=== PATIENT | male | born 1970 | race African-American/Black ===

== ENCOUNTER 2016-12-01 05:36 | Day surgery (SDC) | payer BC ==
[~2016-12-01] VITALS: Ht 177.8 cm; Wt 116.1 kg
--- NOTE | ~2016-12-01 | S ---
[facility] [place] [address] SURGICAL PATH RPT PROCEDURE Name: FREDDIE HA Room #: DEP [facility]..#: [id number] Admission: 12/01/16 Date of : 74 Discharge: 12/01/16 Report #: [id number] Path Case #: [id number] PATHOLOGY REPORT COLLECTION DATE: 12/01/2016 RECEIVED DATE: 12/01/2016 SUBMITTING PHYS: Dr. Karson Barron OTHER PHYS: Dr. Bjorn Ferguson SPECIMEN(S) RECEIVED: A.Ventral hernia sac * * * * * * * * * * * * FINAL DIAGNOSIS: Ventral hernia sac, repair: - Fibrovascular connective tissue with marked congestion and chronic inflammation, compatible with a hernia sac. (IUV:csd; d/t: 12/02/2016) PATHOLOGIST: Masha Addison M.D. REPORT ELECTRONICALLY SIGNED BY: Masha Addison M.D. DATE/TIME: 12/02/2016 16:51 * * * * * * * * * * * * GROSS PATHOLOGY: Received in formalin labeled "Freddie Ha ventral hernia sac," is a segment of red-mandujano to dark-brown membranous tissue with a moderate amount of attached fibroadipose tissue measuring 9.9 x 6.8 x 3.1 cm. No nodules or lesions are identified. Grief Counselor tissue is submitted in cassette A1. (KAH; 12/01/2016) CLINICAL HISTORY: Ventral incisional hernia INITIAL CPT CODE(S): A; 48986 Professional services performed by [facility] at [facility] [address] [place] [address] Technical services performed by [facility] at [address] [place] [id number]. [facility] [address] [place] [address] SURGICAL PATH RPT PROCEDURE Name: FREDDIE HA Room #: DEP [facility] Neri#: [id number] Admission: 12/01/16 Date of : 74 Discharge: 12/01/16 Report #: [id number] Path Case #: [id number] [address] PHONE: [phone] DIRECTOR: Michael Menchaca M.D. * * * END OF REPORT * * *
--- NOTE | ~2016-12-01 | O ---
[facility] [place] [address] OPERATIVE REPORT Name: ANAHI STEPHENS Room #: DEP [facility].#: [id number] Admission: 12/01/16 Attend Phys: Karson Barron MD Discharge: 12/01/16 Date of : 74 Report #: [id number] THIS REPORT FOR: //name// CC: Bjorn Barron DATE OF SERVICE: 12/01/2016 PATIENT OF: Dr. Karson Barron and Dr. Bjorn Ferguson. PREOPERATIVE DIAGNOSIS: Incarcerated ventral incisional hernia. POSTOPERATIVE DIAGNOSIS: Incarcerated ventral incisional hernia. PROCEDURE: Repair of a large incarcerated ventral incisional hernia with Ventralex mesh. SURGEON: Karson Barron MD ANESTHESIA: General. DESCRIPTION OF PROCEDURE: The patient was brought to the operating room and placed on the operative table in the supine position. Sequential compression devices were in place for DVT prophylaxis. There was no indication for preoperative antibiotics. The patient underwent a general endotracheal anesthesia and the abdomen was then prepped and draped in a sterile fashion. Skin and subcutaneous tissue overlying the previous incision scar was infiltrated with 0.5% Marcaine. Skin incision was then performed using #15 scalpel blade. Hemostasis obtained using electrocautery. Dissection was carried down through the subcutaneous tissue to the hernia sac, which was identified and dissected free down to the fascia. The hernia sac was opened and the incarcerated contents were reduced back into the abdomen. The hernia sac was then completely excised using electrocautery as well as clamps and 2-0 chromic ties. This left an approximately 5 cm x 4 cm defect in the fascia. A large Ventralex hernia patch was then placed intraabdominally and then secured circumferentially around the edges of the fascia well away from the edge using interrupted transfascial 0 Prolene sutures through the circumferentially around the mesh. The fascia was then closed over the mesh using interrupted [id number] #1 Prolene sutures. The tails on the strap were secured superiorly and inferiorly with simple interrupted 2-0 Vicryl suture. Deep and superficial subcutaneous tissue was then reapproximated using simple interrupted 2-0 chromic sutures and the skin then closed with a running 4-0 subcuticular Vicryl stitch. Wound was then dressed with Dermabond, Telfa, 4 x 4 gauze, sponge and tape. The patient was then awakened from the general endotracheal anesthesia, extubated, and taken to recovery room in good condition. [address] [address] OPERATIVE REPORT Name: ANAHI STEPHENS Room #: DEP [facility]#: [id number] Admission: 12/01/16 Attend Phys: Karson Barron MD Discharge: 12/01/16 Date of : 74 Report #: [id number] blood loss was approximately 20 mL. The patient tolerated the procedure well. All sponge, lap and instrument counts were correct times 2. <ELECTRONICALLY SIGNED> By: Karson Barron MD 12/02/16 1341 1307 1323 Karson Barron MD /nt
[~2016-12-01 05:36] MED LIST: INDAPAMIDE2.5 MG PO; MULTIVITAMINS1 EAC7 PO; NORVASC 5 MG TAB5 MG PO; NORVASC10 MG PO; VITAMIN D1000 UNI1 PO; ZYRTEC10 M5 PO
[2016-12-01 09:00] VITALS: BP 126/85
[2016-12-01 09:08] LABS: CALCIUM 9.3 mg/dL (8.5-10.1); CREATININE 0.9 mg/dL (0.7-1.3)
[2016-12-01 09:13] LABS: POTASSIUM 3.4 mmol/L (3.5-5.1)
[2016-12-01] MEDS ORDERED: NORCO 5-325 TA1 EACH PO (13:12)
[2016-12-01 13:26] VITALS: BP 126/85
== END 2016-12-01 14:40 | disposition home or self-care (01) ==
LOC: TBA 05:36 → OR 05:36
PROVIDERS: Surgery
DX: K43.6 Other and unspecified ventral hernia with obstruction, without gangrene (principal); I10 Essential (primary) hypertension; Z98.890 Other specified postprocedural states
CPT/HCPCS: 50010; 50101; 50386; 50417; 50621; 54118; 56524; 56525; 56526; 62110; 62900; 64031; 70005